=== PATIENT | female | born 1990 | race Two or more races ===

== ENCOUNTER 2022-01-08 11:16 | Emergency (ER) | payer MEDICAID, OTHER ==
[~2022-01-08] VITALS: Ht 160 cm; Wt 103.1 kg
[2022-01-08 12:33] LABS: Hemoglobin 12.5 g/dL (12.2-16.2); Red Cell Distribution Width 15.2 % (11.8-14.3)
[2022-01-08 12:43] LABS: Urine Bacteria FEW /hpf (None Seen); Urine Blood Negative /uL (Negative); Urine Mucus FEW (None Seen); Urine Specific Gravity 1.023 (1.001-1.035); Urine WBC 1 /hpf (0 - 5)
[2022-01-08 12:51] LABS: Basophils # (auto) 0 10 ^3/uL (0-0.2); Basophils % (auto) 0.7 % (0.0-2.0); Eosinophils # (auto) 0.1 10 ^3/uL (0-0.8); Eosinophils % (auto) 1.9 % (0.0-7.0); Hematocrit 38.1 % (36.0-46.0); Lymphocytes # (auto) 2.1 10 ^3/uL (0.4-5.4); Lymphocytes % (auto) 33.2 % (10.0-50.0); Mean Corpuscular Hemoglobin 28.3 pg (28.0-32.0); Mean Corpuscular Volume 85.8 fL (80.0-100.0); Monocytes # (auto) 0.4 10 ^3/uL (0-1.3); Neutrophils # (auto) 3.6 10 ^3/uL (1.6-8.6); Neutrophils % (auto) 57.2 % (37.0-80.0); Red Blood Cells 4.43 10^6/uL (4.0-5.20); White Blood Cell 6.2 10^3/uL (4.4-10.8)
[2022-01-08 13:03] LABS: Albumin 3.3 g/dL (3.4-5.0); BUN/Creatinine Ratio 12.7; Calcium 8.7 mg/dL (8.5-10.1); Magnesium 1.9 mg/dL (1.6-2.6)
[2022-01-08 13:08] LABS: Bilirubin, Total 0.1 mg/dL (0.2-1.0)
[2022-01-08] MEDS ORDERED: KETOROLAC TROMETH 30 MG/ML 1ML VIAL IM ONE (14:15)
[2022-01-08 15:50] VITALS: BP 116/60
== END 2022-01-08 16:15 | disposition home or self-care (01) ==
LOC: ER 11:16
DX: R07.89 Other chest pain (principal)
CPT/HCPCS: 36415; 71046; 80053; 81001; 81025; 83690; 83735; 83880; 84484; 85025; 85379; 93005; 96372; 99285; J1885

== ENCOUNTER 2022-05-28 00:31 | Emergency (ER) | payer SELFPAY ==
[~2022-05-28] VITALS: Ht 160 cm; Wt 227.0 kg
[2022-05-28 00:31] VITALS: BP 119/77
== END 2022-05-28 02:57 | disposition left against medical advice (07) ==
LOC: ER 00:31
DX: O46.91 Antepartum hemorrhage, unspecified, first trimester (principal); Z3A.11 11 weeks gestation of pregnancy; Z53.21 Procedure and treatment not carried out due to patient leaving prior to being seen by health care provider
CPT/HCPCS: 76801; 76817